=== PATIENT | female | born 1965 | race Caucasian/White ===

== ENCOUNTER 2019-02-28 14:43 | Outpatient (RCR) | payer BC, SELFPAY | END 2019-03-15 23:59 | disposition home or self-care (01) | LOC: SPT 14:43 | PROVIDERS: PCP Nurse Practitioner Family; Visit Provider Nurse Practitioner Family | DX: M25.512 Pain in left shoulder (principal) | CPT/HCPCS: 97110; 97161 ==

== ENCOUNTER 2019-03-16 06:00 | Outpatient (RCR) | payer BC, SELFPAY | END 2019-04-13 23:59 | disposition home or self-care (01) | LOC: SPT 06:00 | PROVIDERS: PCP Nurse Practitioner Family; Visit Provider Nurse Practitioner Family | DX: M25.512 Pain in left shoulder (principal) | CPT/HCPCS: 97110; 97530 ==

== ENCOUNTER 2019-03-21 14:49 | Outpatient (CLI) | payer BC, SELFPAY ==
--- NOTE | 2019-03-21 | XR_ITS ---
WS: [id number] Left shoulder, 3 views, 03/21/2019 Clinical Data: PAIN JOINT SHOULDER LEFT Comparison: None. Findings: No fractures or dislocations are seen. The AC joint is normal. The adjacent left clavicle, left scapu la and ribs are normal. The soft tissues are unremarkable. XR/XR shoulder LT min 2V* [id number] Impression: Negative left shoulder.
== END 2019-03-21 14:50 | disposition home or self-care (01) ==
LOC: RADOUTREAD 03-22 08:32
PROVIDERS: PCP Nurse Practitioner Family; Visit Provider Nurse Practitioner Family
DX: Z76.89 Persons encountering health services in other specified circumstances (principal)

== ENCOUNTER 2019-04-14 06:00 | Outpatient (RCR) | payer BC, SELFPAY | END 2019-05-14 23:59 | disposition home or self-care (01) | LOC: SPT 06:00 | PROVIDERS: PCP Nurse Practitioner Family; Visit Provider Nurse Practitioner Family | DX: R05 Cough (principal) | CPT/HCPCS: 87804 ==

== ENCOUNTER 2019-04-18 11:02 | Emergency (ER) | payer BC, SELFPAY ==
[2019-04-18 11:06] VITALS: BP 125/92; PULSE 103; RESP 18; TEMP 37.5; O2SAT 97; BMI 23.8
--- NOTE | 2019-04-18 11:18 | XR_ITS ---
WS: [id number] XR chest 1V portable [id number] REASON FOR EXAM: flu FINDINGS: The heart and mediastinum are normal. The lung alegria are well aerated. No pneumonia, pulmonary edema, pleural effusion. The hilum and apices normal. No osseous abnormalities. XR/XR chest 1V portable [id number] IMPRESSION: Negative chest for active pathology.
--- NOTE | 2019-04-18 11:19 | W.ED.GENADLT ---
HPI - General Adult General: Chief complaint: Fever Stated complaint: Tested Pos for flu and getting worse Time Seen by Provider: 04/18/19 11:14 History of Present Illness: HPI narrative: Patient diagnosed with flu a on April 13. Been running intermittent fever since then not able to keep fluids down can keep fluids down just feels nauseous just did not feel good has slight cough MD complaint: Influenza Onset (ago): day(s) Associated symptoms: Reports cough, fevers/chills, nausea and vomiting; Deny chest pain, dyspnea, headache(s) or rash Review of Systems Const: Reports: fever, chills and body aches Eyes: Denies: change in vision or blurry vision ENMT: Denies: throat pain or nasal congestion Card: Denies: chest pain or shortness of breath on exertion Resp: Denies: shortness of breath, productive cough or non-productive cough GI: Reports: nausea and vomiting Musc: Denies: extremity pain Skin/Breast: Denies: rash Neuro: Denies: headache Psych: Denies: anxiety or depression Wayne/Lymph: Denies: easy bruising PFSH ED PFSH: Social History (Updated 04/14/19 @ 16:08 by Selena Marina LPN) Smoking and tobacco status: never smoked Physical Exam Const: COMMON NORMALS: no apparent distress, average body habitus and oriented x3 HENMT: COMMON NORMALS: normocephalic HEAD & SCALP: normal to inspection and normocephalic FACE & SINUS: normal facial exam Eye: COMMON NORMALS: conjunctivae normal GENERAL EYE: normal appearance of both eyes CONJUNCTIVA: Yes conjunctivae normal Neck/C-Spine: COMMON NORMALS: no JVD Chest: COMMONS NORMALS: inspection of chest normal Resp: COMMON NORMALS: normal respiratory effort and clear to auscultation bilaterally AUSCULTATION: clear to auscultation bilaterally Cardio: COMMON NORMALS: no JVD, regular rate and regular rhythm RATE: regular rate RHYTHM: regular rhythm GI: COMMON NORMALS: normal to inspection, nondistended, normoactive bowel sounds Extremity: COMMON NORMALS: normal to inspection and full ROM Neuro: COMMON NORMALS: oriented x3 Course Vital Signs: Vital signs: Vital Signs Temperature 99.5 F 04/18/19 11:06 Pulse Rate 90 04/18/19 11:56 Respiratory Rate 17 04/18/19 11:56 Blood Pressure 123/90 04/18/19 11:56 Pulse Oximetry 98 04/18/19 11:56 MDM - General Adult Lab Data: Labs: Lab Results 04/18/19 Range/Units 11:32 WBC 4.6 (4.0-10.0) 10^3/ uL RBC 4.85 (4.1-5.3) 10^6/u L Hgb 13.8 (11.5-15.3) g/dL Hct 42.5 (37.0-47.0) % MCV 87.6 (81-99) fL MCH 28.5 (28.0-34.0) pg MCHC 32.5 (30.0-36.0) g/dL RDW 13.7 (12.1-15.1) % Plt Count 216 (130-400) 10^3/c mm MPV 9.4 (7.4-10.4) fL Neut % (Auto) 44.7 % Lymph % (Auto) 40.4 % Elmore % (Auto) 14.3 % Eos % (Auto) 0.2 % Baso % (Auto) 0.2 % Neut # (Auto) 2.1 (1.8-7.7) 10^3/u L Lymph # (Auto) 1.9 (0.8-4.8) 10^3/u L Elmore # (Auto) 0.7 (0.2-0.9) 10^3/u L Eos # (Auto) 0.0 (0.0-0.8) 10^3/u L Baso # (Auto) 0.0 (0.0-0.1) 10^3/u L Nucleated RBC % (a uto) 0 % Nucleated RBCs # 0.0 /100WBC Discharge Plan Discharge Prescriptions: No Action lisinopril 10 mg tablet 10 mg PO DAILY RF: 0 omeprazole 40 mg capsule,delayed release(DR/EC) 40 mg PO DAILY RF: 0 citalopram 10 mg tablet 10 mg PO DAILY RF: 0 oseltamivir [Tamiflu] 75 mg capsule 75 mg PO BID 5 Days Qty: 10 RF: 0 Coding Level of Care Code ED Medical Assistant Dermatology for g Fwd Exam Comprehensive
[2019-04-18 11:35] VITALS: BP 123/90; PULSE 84; RESP 18; O2SAT 96
[2019-04-18 11:39] LABS: Basophils % 0.2 %; Eosinophils % 0.2 %; Hematocrit 42.5 % (37.0-47.0); Hemoglobin 13.8 g/dL (11.5-15.3); Lymphocytes # 1.9 10^3/uL (0.8-4.8); Lymphocytes % 40.4 %; Mean Corpuscular HGB Conc 32.5 g/dL (30.0-36.0); Mean Corpuscular Hemoglobin 28.5 pg (28.0-34.0); Mean Corpuscular Volume 87.6 fL (81-99); Mean Platelet Volume 9.4 fL (7.4-10.4); Monocytes # 0.7 10^3/uL (0.2-0.9); Monocytes % 14.3 %; Neutrophils # 2.1 10^3/uL (1.8-7.7); Neutrophils % 44.7 %; Nucleated Red Blood Cells % 0 %; Platelet Count 216 10^3/cmm (130-400); Red Blood Count 4.85 10^6/uL (4.1-5.3); Red Cell Distribution Width 13.7 % (12.1-15.1); White Blood Count 4.6 10^3/uL (4.0-10.0)
[2019-04-18] MEDS: sodium chloride 0.9% 1,000 ML 999 ML IV (11:55)
[2019-04-18] MEDS: ondansetron 2 mg/ML SDV 2 mL 4 MG IVP (11:55)
[2019-04-18 11:56] VITALS: BP 123/90; PULSE 90; RESP 17; O2SAT 98
[2019-04-18 12:05] LABS: Alanine Aminotransferase 9 U/L (0-33); Alkaline Phosphatase 50 IU/L (35-105); Anion Gap 18.3 (5-19); Aspartate Amino Transferase 16 U/L (0-32); Blood Urea Nitrogen 14 mg/dL (6-20); Calcium 9.4 mg/dL (8.5-10.5); Carbon Dioxide 24 mmol/L (22-29); Chloride 102 mmol/L (98-107); Globulin 3.4 g/dL (1.3-4.6); Glomerular Filtration Rate 87.5 mL/min (90-130); Glucose 114 mg/dL (65-115); Lipase 13 U/L (13-60); Potassium 3.3 mmol/L (3.5-5.1); Sodium 141 mmol/L (136-145); Total Bilirubin 0.3 mg/dL (0.15-1.2); Total Protein 7.4 g/dL (6.6-8.7)
[2019-04-18 12:30] VITALS: BP 124/82; PULSE 97; RESP 17; O2SAT 96
== END 2019-04-18 12:34 | disposition home or self-care (01) ==
LOC: ER 12:08
PROVIDERS: Emergency Provider Nurse Practitioner Family; PCP Nurse Practitioner Family
DX: R50.9 Fever, unspecified (principal); R11.2 Nausea with vomiting, unspecified; R05 Cough
CPT/HCPCS: 12345; 36415; 71045; 80053; 83690; 85025; 96360; 96361; 96374; 96375; 99282; 99283; J2405; J7030

== ENCOUNTER 2019-11-12 11:34 | Emergency (ER) | payer BC, SELFPAY ==
[2019-11-12 11:41] VITALS: BP 160/105; PULSE 81; RESP 16; TEMP 36.7; O2SAT 98; BMI 22.9
--- NOTE | 2019-11-12 12:06 | XRR_ITS ---
PROCEDURE INFORMATION: Exam: XR Left Foot Complete Exam date and time: 11/12/2019 12:06 PM Age: 54 years old Clinical indication: Patient HX: Twisted left foot, pain in top of foot TECHNIQUE: Imaging protocol: XR Left foot. Views: 3 or more views. COMPARISON: No relevant prior studies available. FINDINGS: Bones/joints: Hindfoot-midfoot and midfoot-forefoot articulations normal. Metatarsals and phalanges without an acute process. Subtalar and tibiotalar joint normal. Mild degenerative changes at the first metatarsal phalangeal joint. Mild soft tissue swelling about the joint space medially. Soft tissues: Small ossific density noted on the anterior posterior view of approximately 4 mm adjacent to the navicular medially. Possible small avulsion injury. Correlate regarding tenderness. XR/XR foot LT min 3V* [id number] IMPRESSION: Small ossific density noted on the anterior posterior view of approximately 4 mm adjacent to the navicular medially. Possible small avulsion injury. Correlate regarding tenderness.
--- NOTE | 2019-11-12 12:28 | W.ED.EXTPRO ---
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 She never felt completely she has did pain with walking this morning no obvious deformity no swelling refers most of the pain to the forefoot. Denies any ankle pain or swelling. MD Complaint: joint swelling and joint pain Onset (ago): day(s) Pain Consistency: constant Location: left Quality: aching Radiation: none Relieving factors: cold therapy, elevation and rest Exacerbating factors: weight bearing and walking Associated symptoms: Deny arthralgias, chest pain, fever(s), myalgias, rash or short of breath Review of Systems Const: Denies: fever(s) Card: Denies: chest pain Resp: Denies: dyspnea, productive cough or non-productive cough GI: Denies: abdominal pain, nausea, vomiting, hematemesis, coffee ground emesis, diarrhea, constipation, bloating, hematochezia or melena Skin/Breast: Denies: rash PFSH ED PFSH: Social History Smoking and tobacco status: never smoked Physical Exam Const: COMMON NORMALS: no acute distress GENERAL APPEARANCE: cooperative and comfortable ORIENTATION/CONSCIOUSNESS: Yes awake, Yes oriented to person, Yes oriented to place and Yes oriented to time HENMT: COMMON NORMALS: normocephalic, atraumatic and hearing grossly normal bilaterally HEAD & SCALP: normocephalic and atraumatic Eye: COMMON NORMALS: Equal, round and reactive pupils present, EOMs intact bilaterally, conjunctivae normal and no scleral icterus CONJUNCTIVA: Yes conjunctivae normal PUPIL: Yes Equal, round and reactive pupils present Neck/C-Spine: COMMON NORMALS: full ROM, no lymphadenopathy, supple and no JVD Lymph: LYMPHATIC: no lymphadenopathy noted and no lymphedema noted Resp: COMMON NORMALS: normal respiratory effort, No retractions, No use of accessory muscles and clear to auscultation bilaterally AUSCULTATION: clear to auscultation bilaterally Cardio: COMMON NORMALS: no JVD, regular rate, regular rhythm and No murmurs present (Cardio) RATE: regular rate RHYTHM: regular rhythm GI: COMMON NORMALS: Soft to palpation and No hepatosplenomegaly present AUSCULTATION: Yes normoactive bowel sounds PALPATION: Yes Soft to palpation, No Tenderness to palpation present (GI), No Guarding due to palpation present (GI) and Yes No hepatosplenomegaly present Extremity: COMMON NORMALS: normal to inspection, capillary refill normal, no clubbing, cyanosis or edema, no calf tenderness and no pedal edema Neuro: SENSORIUM/ORIENTATION: Yes oriented to person, Yes oriented to place and Yes oriented to time Skin: COMMON NORMALS: no rashes or lesions noted GENERAL SKIN EXAM: no rashes or lesions noted Course Vital Signs: Vital signs: Vital Signs Temperature 98.0 F 11/12/19 11:41 Pulse Rate 78 11/12/19 13:33 Respiratory Rate 16 11/12/19 13:33 Blood Pressure 171/104 11/12/19 13:33 Pulse Oximetry 97 11/12/19 13:33 MDM - Extremity (Nontraumatic) MDM Narrative: Medical decision making narrative: Questionable fracture of the navicular. We will put her in a postop shoe nonweightbearing and we will get her set up to see the production welding supervisor for further evaluation she may need more advanced imaging depending on persistence of her symptoms. Discharge Plan Discharge Patient Disposition: Home Clinical Impression: Foot, fracture, navicular Condition: Stable Prescriptions: No Action (DME) Cam walker See Rx Instructions .ROUTE .MEDSUPPLY Qty: 1 RF: 0 Discharge Orders: Discharge Order (Routine); Ordered 11/12/19 Ordered By: Reddy Magana Referrals: Jerald Christie DPM [Physician] - (Questionable left navicular fracture see plain films 11/12/2019) Stand Alone Forms: Work/School Release Discharge Date/Time: 11/12/19 13:33 Coding Level of Care Code ED Channel Director for Ray Hedrick
[2019-11-12 13:33] VITALS: BP 171/104; PULSE 78; RESP 16; O2SAT 97
--- NOTE | 2019-11-12 13:59 | DCPLANNER ---
apartment property manager was asked to schedule a follow up appointment for patent with ortho. apartment property manager called the ortho clinic, spoke with Lisa, gave clinic patients information. apartment property manager was told that patients information would be printed and reviewed. Clinic will call patient with appointment information.
--- NOTE | 2019-11-13 11:02 | DCPLANNER ---
Patient has a follow up appointment scheduled for Monday, November 13, 2019 at 11:[address] Christie. Clinic will call patient with appointment information.
--- NOTE | 2019-11-23 16:26 | DCPLANNER ---
Patient had a follow up appointment scheduled for 11.13.19 with ortho - patient did attend appointment.
== END 2019-11-12 13:33 | disposition home or self-care (01) ==
PROVIDERS: Emergency Provider Family Medicine; PCP Nurse Practitioner Family
DX: S92.252A Displaced fracture of navicular [scaphoid] of left foot, initial encounter for closed fracture (principal); X50.1XXA Overexertion from prolonged static or awkward postures, initial encounter
CPT/HCPCS: 12345; 29515; 73630; 99281; 99283; E0114

== ENCOUNTER 2019-11-13 13:12 | Outpatient (CLI) | payer BC, SELFPAY | END 2019-11-13 13:13 | disposition home or self-care (01) | LOC: SPT 13:13 | PROVIDERS: PCP Nurse Practitioner Family; Visit Provider Podiatrist Foot & Ankle Surgery | DX: Z47.89 Encounter for other orthopedic aftercare (principal); M25.512 Pain in left shoulder | CPT/HCPCS: 97760; L4361 ==

== ENCOUNTER → 2019-11-28 15:11 | Outpatient (BNVA) | payer BC, SELFPAY | PROVIDERS: PCP Nurse Practitioner Family; Visit Provider Podiatrist Foot & Ankle Surgery | DX: S92.252A Displaced fracture of navicular [scaphoid] of left foot, initial encounter for closed fracture (principal); X58.XXXA Exposure to other specified factors, initial encounter | CPT/HCPCS: 73630 ==

== ENCOUNTER 2019-12-11 09:03 | Outpatient (CLI) | payer BC, SELFPAY ==
--- NOTE | 2019-12-11 09:07 | MR_ITS ---
WS: [id number] MRI LEFT FOOT without CONTRAST. COMPARISON: 11/28/2019 and 11/12/2019 Multiplanar, multisequence imaging is performed without contrast. There is a small amount of marrow edema in the proximal to mid second, third and fourth metatarsals. The most significant amount of edema is in the proximal second metatarsal. Cannot confirm fracture. Subchondral cyst in the lateral talus. There is also small amount of marrow edema in the lateral talu s without fracture. There is increased signal in the deltoid ligament consistent with a partial tear. The adjacent tibialis posterior tendon also contains increased signal. No full-thickness tear. Previ ously described avulsion fracture is not definitely identified. MR/MR foot LT wo con* [id number] IMPRESSION: 1. Marrow edema in the proximal to mid second, third and fourth metatarsals. M ost significant amount of edema in the second metatarsal. 2. Partial tear of the deltoid ligament and tendinopathy in the adjacent tibia lis posterior tendon.
== END 2019-12-11 09:04 | disposition home or self-care (01) ==
LOC: RADSHAW 09:06
PROVIDERS: PCP Nurse Practitioner Family; Visit Provider Podiatrist Foot & Ankle Surgery
DX: R60.0 Localized edema (principal); S93.692A Other sprain of left foot, initial encounter; X58.XXXA Exposure to other specified factors, initial encounter
CPT/HCPCS: 73718

== ENCOUNTER 2020-01-28 16:12 | Outpatient (CLI) | payer MEDICAID, SELFPAY | END 2020-01-28 16:13 | disposition home or self-care (01) | LOC: SPT 16:13 | PROVIDERS: PCP Nurse Practitioner Family; Visit Provider Podiatrist Foot & Ankle Surgery | DX: Z46.89 Encounter for fitting and adjustment of other specified devices (principal); S93.422D Sprain of deltoid ligament of left ankle, subsequent encounter; S92.252D Displaced fracture of navicular [scaphoid] of left foot, subsequent encounter for fracture with routine healing; X58.XXXD Exposure to other specified factors, subsequent encounter; M76.822 Posterior tibial tendinitis, left leg | CPT/HCPCS: 97760; L1902 ==

== ENCOUNTER → 2020-09-04 13:50 | Outpatient (BNVA) | payer BC, MEDICAID, SELFPAY | PROVIDERS: PCP Nurse Practitioner Family; Visit Provider Nurse Practitioner Family | DX: J06.9 Acute upper respiratory infection, unspecified (principal); Z20.822 Contact with and (suspected) exposure to COVID-19 | CPT/HCPCS: 87635 ==

== ENCOUNTER 2020-11-05 09:49 | Outpatient (CLI) | payer BC, MEDICAID, SELFPAY ==
--- NOTE | 2020-11-05 09:58 | MM_ITS ---
WS: [id number] SCREENING DIGITAL MAMMOGRAM WITH CAD HISTORY: SCREENING COMPARISON: RIGHT mammogram 02/03/2015. Bilateral CC and MLO views submitted. Computer aided detection analyzed. Breast composition: There are scattered areas of fibroglandular density. Well-circumscribed slightly lobulated nodule measuring 8 x 10 mm LEFT breast at 3:00 at a middle depth. The nodule is slight incr eased density. Otherwise scattered benign lymph nodes towards the axilla. No suspicious masses or dis tortion. MM/[place] [id number] IMPRESSION: BI-RADS: 0-Incomplete: Need additional imaging evaluation FOLLOW UP: Need Additional Imaging LEFT breast: Spot compression views (CC and MLO). True ML. Ultrasound to follow if abnormality persists.
== END 2020-11-05 09:50 | disposition home or self-care (01) ==
PROVIDERS: PCP Family Medicine; Visit Provider Family Medicine
DX: Z12.31 Encounter for screening mammogram for malignant neoplasm of breast (principal)
CPT/HCPCS: 77067

== ENCOUNTER 2021-01-01 08:51 | Outpatient (CLI) | payer OTHER, BC, MEDICAID, SELFPAY ==
--- NOTE | 2021-01-01 09:17 | US_ITS ---
WS: [id number] ADDITIONAL VIEWS LEFT MAMMOGRAM LEFT BREAST ULTRASOUND HISTORY: LT ABNORMAL MAMMOGRAM COMPARISON: 11/05/2020 LEFT MAMMOGRAM: Spot compression views and true ML. Persistent 9 mm high density nodule in the LEFT breast near 3:00. Margins are well visualized. Ultras ound to follow. LEFT BREAST ULTRASOUND 2-D and color Doppler imaging submitted. Ultrasound directed to the 3:00 axis of the LEFT breast at 2:00 is submitted. There is a lobulated pr edominantly cystic mass with a few septations and low-level echoes. This mass corresponds in size and location to the mammographic abnormality. Mass measures 9 x 7 x 9 mm. No increased vascularity withi n the septations. US/US breast LT limited* [id number] IMPRESSION: BI-RADS: 4-Suspicious Finding-Biopsy Should Be Considered FOLLOW UP: Biopsy Recommended Ultrasound-guided biopsy recommended of the LEFT breast mass at 3:00. This may be a complex cyst. As this is not a simple cyst and there are septations core b iopsy should be obtained. Notified Gregory Coffey MD at 01/01/2021 10:04 AM.
== END 2021-01-01 08:52 | disposition home or self-care (01) ==
PROVIDERS: PCP Family Medicine; Visit Provider Family Medicine
DX: R92.8 Other abnormal and inconclusive findings on diagnostic imaging of breast (principal); N63.25 Unspecified lump in the left breast, overlapping quadrants
CPT/HCPCS: 76642; 77065

== ENCOUNTER 2021-02-18 12:07 | Outpatient (CLI) | payer OTHER, BC, MEDICAID, SELFPAY ==
--- NOTE | 2021-02-18 12:50 | US_ITS ---
WS: [id number] ULTRASOUND-GUIDED LEFT BREAST BIOPSY HISTORY: ABNORMAL LEFT MAMMOGRAM/MASS COMPARISON: 01/01/2021, 11/05/2020 Procedure, risks and complications are explained to the patient. Medications are reviewed. Consent is obtained. The mass in the LEFT breast is localized with ultrasound. Mass localizes at 3:00. Skin is cleansed wi th ChloraPrep and anesthetized with 1% buffered lidocaine. Small dermatome is made. Under sterile con ditions mass is biopsied with a 14-gauge Achieve needle. Multiple core biopsies are performed. Materi al placed in formalin and sent to pathology for review. No complications encountered. Breast tissue marker (Bard ultrasound enhanced ribbon): Single. Patient left the radiology suite with no complications. [place] is [place] [facility] [place] [facility] with any concerns. US/[place] [id number] IMPRESSION: 1. Uncomplicated core needle biopsy cystic mass at 3:00. Cyst nearly completel y collapses after the third biopsy. Clip was placed in the area of biopsy. PATHOLOGY: Benign fibrocystic changes and a focus of fibroadenomatoid change. H istiocytes and debris. No malignancy. Pathology and imaging findings are concor dant. RECOMMENDATION: Return to annual screening.
== END 2021-02-18 12:08 | disposition home or self-care (01) ==
PROVIDERS: PCP Family Medicine; Visit Provider Family Medicine
DX: R92.8 Other abnormal and inconclusive findings on diagnostic imaging of breast (principal); N63.25 Unspecified lump in the left breast, overlapping quadrants; N64.1 Fat necrosis of breast
CPT/HCPCS: 19083; 88305

== ENCOUNTER 2022-09-22 17:09 | Emergency (ER) | payer BC, MEDICAID, SELFPAY ==
[2022-09-22 17:45] LABS: Basophils # 0.1 10^3/uL (0.0-0.1); Basophils % 0.3 %; Eosinophils # 0.5 10^3/uL (0.0-0.8); Eosinophils % 3.5 %; Hemoglobin 13.6 g/dL (11.5-15.3); Lymphocytes # 0.8 10^3/uL (0.8-4.8); Lymphocytes % 5.2 %; Mean Corpuscular HGB Conc 31.6 g/dL (30.0-36.0); Mean Corpuscular Hemoglobin 28.3 pg (28.0-34.0); Mean Corpuscular Volume 89.6 fl (81-99); Mean Platelet Volume 8.9 fL (7.4-10.4); Monocytes % 6.3 %; Neutrophils # 12.72 10^3/uL (1.8-7.7); Neutrophils % 84.4 %; Nucleated Red Blood Cells % 0 %; Platelet Count 334 10^3/cmm (130-400); Red Cell Distribution Width 13.6 % (12.1-15.1); White Blood Count 15.1 10^3/uL (4.0-10.0)
[2022-09-22 18:14] LABS: Alanine Aminotransferase 17 U/L (0-33); Albumin Level 4.4 g/dL (3.5-5.2); Alkaline Phosphatase 92 U/L (35-105); Anion Gap 19.3 (5-19); Aspartate Amino Transferase 19 U/L (0-32); Blood Urea Nitrogen 19 mg/dL (6-20); Calcium 9.4 mg/dL (8.5-10.5); Carbon Dioxide 22 mmol/L (22-29); Chloride 104 mmol/L (98-107); Globulin 3.3 g/dL (1.3-4.6); Glomerular Filtration Rate 86.6 mL/min (90-130); Glucose 96 mg/dL (65-115); Lipase 17 U/L (13-60); Osmolality Calculated 294 mOsm/kg (285-295); Potassium 4.3 mmol/L (3.5-5.1); Sodium 141 mmol/L (136-145); Total Bilirubin 0.3 mg/dL (0.15-1.2); Total Protein 7.7 g/dL (6.6-8.7)
[2022-09-22 18:30] VITALS: BP 139/80; PULSE 127; O2SAT 96
[2022-09-22 19:07] VITALS: BMI 25.7
[2022-09-22 19:12] VITALS: BP 100/73; PULSE 115; RESP 16; TEMP 37; O2SAT 97
== END 2022-09-22 20:09 | disposition left against medical advice (07) ==
LOC: ER 17:13
PROVIDERS: Emergency Medicine; Emergency Provider Family Medicine; PCP Family Medicine
DX: Z53.21 Procedure and treatment not carried out due to patient leaving prior to being seen by health care provider (principal)
CPT/HCPCS: 36415; 80053; 83690; 85025

== ENCOUNTER 2023-04-07 15:16 | Outpatient (CLI) | payer BC, MEDICAID, SELFPAY ==
--- NOTE | 2023-04-07 15:22 | MM_ITS ---
WS: [id number] BILATERAL 3D TOMOSYNTHESIS DIGITAL SCREENING MAMMOGRAPHY WITH CAD CLINICAL INFORMATION: SCREENING HISTORY: Screening mammogram. No current complaints. COMPARISON: 2020 TECHNIQUE: Bilateral CC and MLO views. FINDINGS: Scattered fibroglandular densities bilaterally. No suspicious focal mass, asymmetry, calcifications, or architectural distortion. No evidence of malignancy. Biopsy clip upper outer LEFT breast. Incident al punctate calcifications. IMPRESSION: MM/[place] [id number] BI-RADS: 2-Benign FOLLOW UP: 1 Year Follow-up Recommend return to annual screening mammography.
== END 2023-04-07 15:17 | disposition home or self-care (01) ==
LOC: RAD 15:17
PROVIDERS: PCP Family Medicine; Visit Provider Family Medicine
DX: Z12.31 Encounter for screening mammogram for malignant neoplasm of breast (principal); R92.323 Mammographic fibroglandular density, bilateral breasts
CPT/HCPCS: 77063; 77067

== ENCOUNTER 2023-05-03 16:23 | Outpatient (CLI) | payer BC, MEDICAID, SELFPAY ==
--- NOTE | 2023-05-03 16:26 | XRR_ITS ---
PROCEDURE INFORMATION: Exam: XR Ribs Exam date and time: 05/03/2023 4:40 PM Age: 58 years old Clinical indication: Injury or trauma; Fall; Rib area, bilateral; Blunt trauma; Injury date: 05/02/23 TECHNIQUE: Imaging protocol: Radiologic exam of the of the ribs. Views: 3 views. Bilateral ribs. COMPARISON: CR XR chest 1V portable [id number] 04/18/2019 11:33 AM FINDINGS: Bones/joints: No evidence of displaced rib fracture. Lungs: No evidence of focal consolidation, pneumothorax or pleural effusion. Soft tissues: Grossly unremarkable. XR/XR ribs BI 3V* [id number] IMPRESSION: 1. No evidence of displaced rib fracture. If there is ongoing clinical concern, consider correlation with CT.
== END 2023-05-03 16:24 | disposition home or self-care (01) ==
LOC: RAD 16:24
PROVIDERS: PCP Family Medicine; Visit Provider Registered Nurse Neonatal Intensive Care
DX: S29.9XXA Unspecified injury of thorax, initial encounter (principal); W19.XXXA Unspecified fall, initial encounter
CPT/HCPCS: 71110